=== PATIENT | female | born 2000 | race Caucasian/White ===

== ENCOUNTER 2019-05-21 23:21 | Emergency (ER) | payer OTHER ==
[2019-05-21 23:26] VITALS: TEMP 98.6; BMI 25.2
--- NOTE | 2019-05-22 00:24 | PDOC ---
History of Present Illness - General Chief Complaint: Ear Problem Stated Complaint: POSSIBLE EAR INFECTION Time Seen by Provider: 05/22/19 00:14 - History of Present Illness Initial Comments: 05/22/19 00:31 several days of congestion. sore throat and bilat ear pressure fever on Past History - Past Medical History Allergies/Adverse Reactions: Allergies Allergy/AdvReac Type Severity Reaction Status Date / Time No Known Allergies Allergy Verified 11/24/16 15:49 Home Medications: Ambulatory Orders No Home Medications 0 dose .ROUTE UTDICT 12/17/12 Cephalexin Monohydrate [Keflex -] 500 mg PO Q6H #30 capsule 05/22/19 Pseudoephedrine HCl [Sudafed] 60 mg PO BID #20 tablet 05/22/19 COPD: No - Immunization History Immunization Up to Date: Yes - Suicide/Smoking/Psychosocial Hx Smoking Status: No Smoking History: Never smoked Have you smoked in the past 12 months: No Number of Cigarettes Smoked Daily: 0 Hx Alcohol Use: No Drug/Substance Use Hx: No Substance Use Type: None *Physical Exam - Vital Signs Last Vital Signs Temp Pulse Resp BP Pulse Ox 98.6 F 100 H 20 138/83 100 05/21/19 23:25 05/21/19 23:25 05/21/19 23:25 05/21/19 23:25 05/21/19 23:25 *DC/Admit/Observation/Transfer Diagnosis at time of Disposition: Strep pharyngitis - Discharge Dispostion Disposition: HOME Condition at time of disposition: Stable Decision to Admit order: No - Prescriptions Prescriptions: Cephalexin Monohydrate [Keflex -] 500 mg PO Q6H #30 capsule Pseudoephedrine HCl [Sudafed] 60 mg PO BID #20 tablet - Referrals - Patient Instructions Printed Discharge Instructions: DI for Strep Throat Additional Instructions: You were seen in the ED for complaints of ear pressure and sore throat. You were evaluated and found to have strep pharyngitis. Antibiotics have been prescribed to your pharmacy and should be taken as prescribed. Take over the counter, Motrin, Tylenol Return to the ED if you experience worsening sore throat , fever > 104F, worsening ear pain or any other complaints. - Post Discharge Activity Forms/Work/School Notes: Back to Work
[2019-05-22] MEDS ORDERED: CEPHALEXIN MONOHYDRATE 500 MG CAPSULE (UD) PO ONE (01:31)
[2019-05-22] MEDS ORDERED: CEPHALEXIN MONOHYDRATE 500 MG CAPSULE (UD) ONE (02:25)
[2019-05-22 04:07] VITALS: BP 133/85; PULSE 86
== END 2019-05-22 02:35 | disposition home or self-care (01) ==
LOC: JER 23:21
DX: J02.0 Streptococcal pharyngitis (principal); B95.0 Streptococcus, group A, as the cause of diseases classified elsewhere
CPT/HCPCS: 87880; 99282-25